=== PATIENT | female | born 1950 | race Caucasian/White ===

== ENCOUNTER 2017-09-04 05:46 | Day surgery (SDC) | payer MEDICARE, OTHER ==
[2017-09-04] MEDS ORDERED: Versed 2 MG/2 ML Injection IV ONE (05:47)
[2017-09-04] MEDS ORDERED: DIPRIVAN 200 MG/20 ML IV ONE (05:47)
[2017-09-04] MEDS ORDERED: Lactated Ringers 1,000 ML IV ONE ×2 (07:19→08:52)
[2017-09-04] MEDS ORDERED: Lactated Ringers 1,000 ML IV SCH (07:30)
[2017-09-04 09:44] VITALS: BP 135/78; PULSE 74; O2SAT 95
--- NOTE | 2017-09-04 11:18 | OP ---
SURGERY DATE: 09/04/17 SURGERY TIME: 810 PREOPERATIVE DIAGNOSIS: 1. SCREENING COLONOSCOPY. 2. HISTORY OF COLON POLYPS. POSTOPERATIVE DIAGNOSIS: 1. NORMAL COLON. PROCEDURE: 1. Colonoscopy. SURGEON: Dr. Slim Cardoza. ANESTHESIA: MAC by Marty Avalos CRNA. SPECIMENS: None. ESTIMATED BLOOD LOSS: None. DESCRIPTION OF PROCEDURE: After informed written consent was obtained, the patient was taken to the endoscopy suite. She underwent monitored anesthesia and a digital rectal exam showed normal sphincter tone and no internal lesions. The scope was inserted in the rectum and sequentially the entire colonic mucosa was traversed. The level of the cecum was reached and verified with direct visualization of the ileocecal valve. Upon withdrawal, careful mucosal inspection revealed no gross abnormalities. Prior to withdrawal, retroflexion was performed and showed no internal lesions. The scope was removed and the patient was transferred to the recovery room in excellent condition.
== END 2017-09-04 10:09 | disposition home or self-care (01) ==
LOC: SDC 05:46
PROVIDERS: ATTEND Family Medicine
PROC: 0DJD8ZZ Inspection of Lower Intestinal Tract, Via Natural or Artificial Opening Endoscopic (ICD-10-PCS; principal; 2017-09-04)
DX: Z12.11 Encounter for screening for malignant neoplasm of colon (principal); Z86.010 Personal history of colon polyps; I10 Essential (primary) hypertension; E11.9 Type 2 diabetes mellitus without complications
CPT/HCPCS: 00810; 82962; J2250; J2704